=== PATIENT | female | born 1990 | race Caucasian/White ===

== ENCOUNTER 2016-09-02 19:17 | Emergency (ER) | payer OTHER ==
[~2016-09-02] VITALS: Ht 175.2 cm; Wt 136.1 kg
[~2016-09-02 19:17] MED LIST: ABILIFY10 MG PO; BACTRIM DS 8001 TA1 PO; CELEXA10 MG PO; CEPHALEXIN500 M1 PO; CLARITIN10 MG PO; COUMADIN0.5 M1 PO; FLINTSTONES1 CTB PO; HYDROCODONE BIT1 T11 PO; KEFLEX500 MG PO; MOTRIN800 MG PO; MULTIVITAMIN1 CTB PO; NKHM; PREDNICOT20 MG PO; PRENATAL1 TA2 PO; VOLTAREN50 M1 PO; WELLBUTRIN XL300 MG PO; ZITHROMAX Z PA250 MG PO; ZOFRAN ODT4 MG PO; ZOVIRAX800 MG PO
== END 2016-09-02 19:31 | disposition home or self-care (01) ==
LOC: ED 19:17
DX: S91.311A Laceration without foreign body, right foot, initial encounter (principal); Z29.12 Encounter for prophylactic antivenin; F17.200 Nicotine dependence, unspecified, uncomplicated; W22.03XA Walked into furniture, initial encounter; Y93.89 Activity, other specified; Y92.9 Unspecified place or not applicable; Y99.9 Unspecified external cause status

== ENCOUNTER 2017-04-02 18:50 | Emergency (ER) | payer OTHER ==
[~2017-04-02] VITALS: Ht 177.8 cm; Wt 113.4 kg
== END 2017-04-02 21:27 | disposition home or self-care (01) ==
LOC: ED 18:50
DX: O26.892 Other specified pregnancy related conditions, second trimester (principal); S62.616A Displaced fracture of proximal phalanx of right little finger, initial encounter for closed fracture; M54.5 Low back pain; F10.10 Alcohol abuse, uncomplicated; Z3A.20 20 weeks gestation of pregnancy; V49.59XA Passenger injured in collision with other motor vehicles in traffic accident, initial encounter; Y93.89 Activity, other specified; Y92.89 Other specified places as the place of occurrence of the external cause; Y99.8 Other external cause status

== ENCOUNTER 2019-11-25 17:15 | Emergency (ER) | payer OTHER ==
[~2019-11-25] VITALS: Ht 180.3 cm; Wt 129.3 kg
== END 2019-11-25 19:24 | disposition home or self-care (01) ==
LOC: ED 17:15
DX: S62.336A Displaced fracture of neck of fifth metacarpal bone, right hand, initial encounter for closed fracture (principal); Z88.6 Allergy status to analgesic agent; W22.8XXA Striking against or struck by other objects, initial encounter; Y93.89 Activity, other specified; Y92.89 Other specified places as the place of occurrence of the external cause; Y99.8 Other external cause status

== ENCOUNTER 2021-01-10 16:06 | Emergency (ER) | payer OTHER ==
[2021-01-10 16:47] LABS: BILIRUBIN Negative (Negative); BLOOD Trace-Intact (Negative); CLARITY Cloudy (Clear); COLOR Yellow (Yellow); GLUCOSE 3+ (Negative); KETONE Trace (Negative); LEUKO ESTERASE Negative (Negative); NITRITE Negative (Negative); SPECIFIC GRAVITY >= 1.030 (1.001-1.030); UROBILINOGEN 0.2 E.U./dl (0.0-1.0)
[2021-01-10 16:59] LABS: RBC 16-20 rbc/hpf (0-2)
[2021-01-10 17:01] LABS: BACTERIA 1+; EPITHELIAL CELLS 16-20; YEAST TRACE
== END 2021-01-10 18:11 | disposition home or self-care (01) ==
LOC: ED 16:06
PROVIDERS: Physician Assistant
DX: Z11.3 Encounter for screening for infections with a predominantly sexual mode of transmission (principal); Z20.2 Contact with and (suspected) exposure to infections with a predominantly sexual mode of transmission; Z88.5 Allergy status to narcotic agent

== ENCOUNTER 2025-03-28 10:50 | Emergency (ER) | payer OTHER ==
[~2025-03-28] VITALS: Ht 177.8 cm; Wt 101.6 kg
[2025-03-28] MEDS ORDERED: BUSPIRONE HCL10 MG PO (11:21)
[2025-03-28] MEDS ORDERED: DEXTROAMPH SACC10 M1 PO (11:21)
[2025-03-28] MEDS ORDERED: LAMOTRIGINE100 MG PO (11:21)
[2025-03-28] MEDS ORDERED: VENLAFAXINE HYD75 M3 PO (11:22)
[2025-03-28] MEDS ORDERED: MIXED AMPHETAMI30 MG PO (11:22)
[2025-03-28] MEDS ORDERED: HYDROmorphONE Hydrochloride 0.5 MG/0.5 ML SYRINGE IV ONE (11:35)
[2025-03-28] MEDS ORDERED: SODIUM CHLORIDE 0.9% 1,000 ML IV SCH (11:35)
[2025-03-28] MEDS ORDERED: Ondansetron Hydrochloride 4 MG/2 ML VIAL IV ONE (11:35)
[2025-03-28 11:50] LABS: BASO # 0.1 10*3/uL (0.0-0.1); BASO % 0.6 % (0.0-1.0); EOS # 0.4 10*3/uL (0.0-0.4); EOS % 4.0 % (1.0-4.0); MEAN CELL VOLUME 81.9 fl (81.0-99.0); MEAN CORPUSCULAR HGB 27.3 pg (27.0-31.0); MEAN PLATELET VOLUME 9.7 fl (9.6-12.3); MONO # 0.5 10*3/uL (0.1-1.0); MONO % 4.3 % (3.0-9.0); NEUT # 6.5 10*3/uL (2.3-7.9); NEUT % 60.9 % (47.0-73.0); NUCLEATED RED BLOOD CELL 0.0 % (0.0-0.0); NUCLEATED RED BLOOD CELL 0.0 10*3/uL (0.0-0.0); PLATELET COUNT AUTOMATED 280 10*3/uL (130-400); RED CELL DISTRI WIDTH 14.8 % (0-14.5)
[2025-03-28 12:08] LABS: BUN 5 mg/dl (9-23)
[2025-03-28 13:27] LABS: CLARITY Clear (Clear); COLOR Yellow (Yellow)
[2025-03-28 13:28] LABS: BILIRUBIN Negative (Negative); BLOOD Negative (Negative); KETONE Negative (Negative); LEUKO ESTERASE Negative (Negative); NITRITE Negative (Negative); PH 6.0 (4.5-8.0); SPECIFIC GRAVITY 1.030 (1.001-1.030); UROBILINOGEN 0.0 E.U./dl (0.0-1.0)
[2025-03-28 13:29] LABS: BACTERIA 1+; MUCOUS TRACE; RBC 0-2 rbc/hpf (0-2)
[2025-03-28] MEDS ORDERED: CYCLOBENZAPRINE10 MG PO (13:44)
== END 2025-03-28 14:07 | disposition home or self-care (01) ==
LOC: ED 10:50
PROVIDERS: Nurse Practitioner Family
DX: S39.012A Strain of muscle, fascia and tendon of lower back, initial encounter (principal); E11.65 Type 2 diabetes mellitus with hyperglycemia; G51.0 Bell's palsy; F41.9 Anxiety disorder, unspecified; F32.A Depression, unspecified; Z88.5 Allergy status to narcotic agent; Z87.440 Personal history of urinary (tract) infections; R10.9 Unspecified abdominal pain; Z90.49 Acquired absence of other specified parts of digestive tract; X58.XXXA Exposure to other specified factors, initial encounter; Y93.89 Activity, other specified; Y92.89 Other specified places as the place of occurrence of the external cause; Y99.8 Other external cause status

== ENCOUNTER 2025-04-13 10:40 | Emergency (ER) | payer OTHER ==
[~2025-04-13] VITALS: Ht 175.2 cm; Wt 99.8 kg
[~2025-04-13 10:40] MED LIST changes: +BUSPIRONE HCL10 MG PO; +CYCLOBENZAPRINE10 MG PO; +DEXTROAMPH SACC10 M1 PO; +LAMOTRIGINE100 MG PO; +MIXED AMPHETAMI30 MG PO; +VENLAFAXINE HYD75 M3 PO
[2025-04-13] MEDS ORDERED: METHOCARBAMOL 500 MG TAB PO ONE (11:05)
[2025-04-13] MEDS ORDERED: MELOXICAM15 MG PO (12:10)
[2025-04-13] MEDS ORDERED: METHOCARBAMOL500 M1 PO (12:10)
== END 2025-04-13 12:25 | disposition home or self-care (01) ==
LOC: ED 10:40
DX: M54.16 Radiculopathy, lumbar region (principal); F41.9 Anxiety disorder, unspecified; F32.A Depression, unspecified; Z90.49 Acquired absence of other specified parts of digestive tract; Z88.5 Allergy status to narcotic agent